=== PATIENT | female | born 2000 | race Two or more races ===

== ENCOUNTER 2024-04-24 18:34 | Emergency (ER) | payer OTHER ==
[~2024-04-24] VITALS: Ht 162.6 cm; Wt 95.3 kg
[2024-04-24] MEDS ORDERED: ACETAMINOPHEN 500 MG GEL..CAP PO STA (22:16)
[2024-04-24] MEDS ORDERED: ONDANSETRON HCL 2 MG/ML VIAL IM STA (22:21)
[2024-04-24] MEDS ORDERED: ONDANSETRON HCL 2 MG/ML VIAL ONE (22:24)
[2024-04-24] MEDS ORDERED: ACETAMINOPHEN 500 MG GEL..CAP PO ONE (22:25)
== END 2024-04-25 00:23 | disposition home or self-care (01) ==
LOC: ER 18:35
DX: S00.93XA Contusion of unspecified part of head, initial encounter (principal); W19.XXXA Unspecified fall, initial encounter; Y93.89 Activity, other specified; Y92.89 Other specified places as the place of occurrence of the external cause; Y99.9 Unspecified external cause status